=== PATIENT | female | born 1990 | race Caucasian/White ===

== ENCOUNTER 2016-06-03 20:41 | Emergency (ER) | payer MEDICAID ==
[~2016-06-03] VITALS: Ht 170.2 cm; Wt 59.1 kg
[~2016-06-03 20:41] MED LIST: NAPR550 PO; PREN0.01 PO; SENN1TAB11 PO
[2016-06-03 20:43] VITALS: BP 127/72; PULSE 72; RESP 16; TEMP 98.8; O2SAT 100
== END 2016-06-03 21:56 | disposition left against medical advice (07) ==
LOC: NED 20:41
DX: R42 Dizziness and giddiness (principal); Z53.21 Procedure and treatment not carried out due to patient leaving prior to being seen by health care provider
CPT/HCPCS: 99281